=== PATIENT | male | born 1930 | race Caucasian/White ===

== ENCOUNTER 2016-06-01 13:14 | Inpatient (IN) | payer MEDICARE, BC ==
[2016-06-11] MEDS ORDERED: Lactulose Soln 10 GM/15 ML 15 ML UD Cup PO PRN (14:56)
[2016-06-11] MEDS ORDERED: Polyethylene Glycol 3350 Powder 17 GM Packet PO PRN (14:59)
[2016-06-11] MEDS ORDERED: Sodium Chloride 0.65% Nasal Spray 45 ML Bottle NASBOTH PRN (15:01)
[2016-06-11] MEDS ORDERED: Tuberculin, PPD 5 Units/0.1 ML 1 ML MDV IDERM ONE (16:05)
--- NOTE | 2016-06-11 16:16 | PCM.HP ---
H&P History of Present Illness - General Date of Service: 06/11/16 Admit Problem/Dx: Admission Diagnosis/Problem Admission Diagnosis/Problem Pain management Source of Information: Patient History Limitations: Reports: No limitations - History of Present Illness Initial Comments - Free Text/Narative: Pt is a 86 year old male who has yash diagnosed with intracranial meningioma with left sided hemiparesis. He was [facility] in [place] and later transferred to Stroke rehab unit at [facility] on 06/01/16. Pt does have residual left sided Hemiparesis and he has been moved back to [place], [place] for rehab. Pt has declined neurosurgery or oncology consultation. He has cancelled all appointment. Pt just wants to gets physiotherapy and stay on the present medication regime. No fever or chills. No nausea or vomiting. no headache. no sensory paresthesia. - Related Data Allergies/Adverse Reactions: Allergies Allergy/AdvReac Type Severity Reaction Status Date / Time No Known Allergies Allergy Verified 06/11/16 15:47 Home Medications: Home Meds Cetirizine HCl 10 mg PO BEDTIME 03/30/16 [History] Cholecalciferol (Vitamin D3) [Vitamin D3] 2,000 unit PO DAILY 03/30/16 [History] Hydrochlorothiazide [Hydrochlorothiazide] 12.5 mg PO DAILY 03/30/16 [History] Metoprolol Tartrate [Metoprolol Tartrate] 25 mg PO DAILY 03/30/16 [History] Simvastatin [Simvastatin] 20 mg PO DAILY 03/30/16 [History] Aspirin [Ecotrin] 165 mg PO DAILY 05/01/16 [History] Fluticasone Propionate 2 sprays RICKY BEDTIME 05/01/16 [History] Past Medical History HEENT History: Reports: Cataract, Hard of hearing, Other (see below) Other HEENT History: States nose plugs up at night a lot Cardiovascular History: Reports: Heart valve replacement, Pacemaker Other Cardiovascular History: new pacemaker in 2015, Heart valve in 2005 Respiratory History: Reports: Other (see below) Other Respiratory History: States susceptible to pneumonia and has a weakened immunity Genitourinary History: Reports: Other (see below) Other Genitourinary History: urgency Oncologic (Cancer) History: Reports: Prostate Other Oncologic History: Prostate CA with radiation - Infectious Disease History Infectious Disease History: Reports: Chicken pox, Measles, Mumps - Past Surgical History HEENT Surgical History: Reports: Cataract surgery Cardiovascular Surgical History: Reports: Pacer, Valve replacement Dermatological Surgical History: Reports: Other (see below) Social & Family History - Family History Family Medical History: Noncontributory - Tobacco Use Smoking Status *Q: Never Smoker Second Hand Smoke Exposure: No - Caffeine Use Caffeine Use: Reports: Coffee Other Caffeine Use: chocolate - Recreational Drug Use Recreational Drug Use: No H&P Review of Systems - Review of Systems: Review Of Systems: See Below General: Denies: fever, chills HEENT: Denies: rhinitis, post nasal drip, sinus congestion, sore throat Pulmonary: Denies: Shortness of Breath, Wheezing, Cough, Sputum Cardiovascular: Denies: chest pain, lightheadedness Gastrointestinal: Denies: Abdominal pain, Nausea, Vomiting Genitourinary: Denies: dysuria, frequency Musculoskeletal: Denies: neck pain, shoulder pain, joint pain, joint swelling Skin: Denies: cyanosis, bruising, pruritis, rash Psychiatric: Denies: confusion, depression, agitation, cravings Neurological: Reports: Pre-Existing Deficit, Difficulty Walking, Weakness. Denies: Confusion, Dizziness, Headache, Numbness, Seizure, Syncope, Tingling, Tremors, Trouble Speaking, Change in Speech Exam - Exam Exam: See Below - Vital Signs Vital Signs: Last Vital Signs Temp 98.3 F 06/11/16 15:05 Pulse 94 06/11/16 15:05 Resp 16 06/11/16 15:05 BP 107/73 06/11/16 15:05 Pulse Ox 95 06/11/16 15:05 Weight: 79.549 kg - Exam General: alert, oriented, 4 HEENT: PERRLA, Hearing intact, Mucosa moist & pink, Nares patent, Normal nasal septum, Posterior pharynx clear, Conjunctiva clear, EOMI, EACs clear, TMs clear Neck: supple, trachea midline, 2 Lungs: Clear to auscultation, Normal respiratory effort Cardiovascular: regular rate, regular rhythm Abdomen: normal bowel sounds, soft Extremities: normal inspection Peripheral Pulses: 2+: carotid (L), carotid (R), radial (L), radial (R) Skin: warm, intact Neuro Extensive - Mental Status: alert, oriented x3, normal mood/affect, normal cognition, memory intact Neuro Extensive - Motor, Sensory, Reflexes: CN II-XII intact, other (patient has left sided hemiparesis , lower extremity worse than upper extremity) *Q Meaningful Use (ADM) - VTE *Q VTE Criteria *Q: - Stroke *Q Stroke Criteria *Q: - AMI *Q AMI Criteria *Q: - Problem List (1) Hemiparesis, right SNOMED Code(s): 010640445 ICD Code: G81.91 - HEMIPLEGIA, UNSPECIFIED AFFECTING RIGHT DOMINANT SIDE Status: Acute Current Visit: Yes Problem List Initiated/Reviewed/Updated: Yes Orders Last 24hrs: Active Orders 24 hr Category Date Time Status Patient Status [ADT] Routine ADT 06/11/16 16:05 Ordered Consult to Dietary [Consult to Financial Management Consultant] [CONS] Cons 06/11/16 16:05 Ordered Routine Consult to Infection Prevention [CONS] Routine Cons 06/11/16 16:05 Ordered OT Evaluation and Treatment [CONS] Routine Cons 06/11/16 16:05 Ordered PT Evaluation and Treatment [CONS] Routine Cons 06/11/16 16:05 Ordered CULTURE MRSA SURVEY [RM] Routine Lab 06/11/16 15:49 Ordered Aspirin [Ecotrin] Med 06/12/16 08:00 Ordered 165 mg PO DAILY Aspirin [Halfprin] Med 06/12/16 08:00 Active 162 mg PO DAILY Cetirizine [ZyrTEC] Med 06/11/16 20:00 Active 10 mg PO BEDTIME Cetirizine [ZyrTEC] Med 06/11/16 20:00 Ordered 10 mg PO BEDTIME Cholecalciferol (Vitamin D3) [Vitamin D3] Med 06/12/16 08:00 Active 2,000 unit PO DAILY Cholecalciferol (Vitamin D3) [Vitamin D3] Med 06/12/16 08:00 Ordered 2,000 unit PO DAILY Cyclobenzaprine [Flexeril] Med 06/11/16 14:54 Active 5 mg PO TID PRN Dexamethasone Med 06/11/16 20:00 Active 2 mg PO BID Docusate Sodium [Colace] Med 06/11/16 20:00 Active 100 mg PO BID Fluticasone Propionate [Flonase] Med 06/11/16 20:00 Active 0 - 2 gm NASBOTH BEDTIME Hydrochlorothiazide Med 06/12/16 08:00 Active 12.5 mg PO DAILY Hydrochlorothiazide [Hydrochlorothiazide] Med 06/12/16 08:00 Ordered 12.5 mg PO DAILY Lactulose [Chronulac] Med 06/11/16 14:56 Active 20 gm PO DAILY PRN Metoprolol Tartrate [Lopressor] Med 06/12/16 08:00 Ordered 25 mg PO DAILY Metoprolol Tartrate [Lopressor] Med 06/11/16 17:00 Active 25 mg PO DAILY@1700 Omeprazole Med 06/11/16 20:00 Active 20 mg PO BIDAC Polyethylene Glycol 3350 [MiraLAX] Med 06/11/16 14:59 Active 17 gm PO DAILY PRN QUEtiapine [SEROquel] Med 06/11/16 15:00 Active 75 mg PO BEDTIME PRN Simvastatin [Zocor] Med 06/11/16 20:00 Active 20 mg PO BEDTIME Simvastatin [Zocor] Med 06/12/16 08:00 Ordered 20 mg PO DAILY Sodium Chloride 0.65% [[place] Nasal [place]] Med 06/11/16 15:01 Active 0 - 2 ml NASBOTH Q2H PRN Tamsulosin [Flomax] Med 06/11/16 20:00 Active 0.4 mg PO BEDTIME Tuberculin, PPD [Aplisol] Med 06/11/16 16:05 Once 5 unit IDERM ONETIME ONE levETIRAcetam [Keppra] Med 06/11/16 20:00 Active 500 mg PO BID Resuscitation Status Routine Resus Stat 06/11/16 16:05 Ordered Medication Orders Aspirin (Halfprin) 162 mg PO DAILY MANJU Aspirin (Ecotrin) 165 mg PO DAILY [facility] Cetirizine HCl (Zyrtec) 10 mg PO BEDTIME MANJU Cetirizine HCl (Zyrtec) 10 mg PO BEDTIME MANJU Cholecalciferol (Vitamin D3) 2,000 unit PO DAILY MANJU Cholecalciferol (Vitamin D3) 2,000 unit PO DAILY MANJU Cyclobenzaprine HCl (Flexeril) 5 mg PO TID PRN PRN Reason: MUSCLE SPASM Dexamethasone (Dexamethasone) 2 mg PO BID MANJU Docusate Sodium (Colace) 100 mg PO BID MANJU Fluticasone Propionate (Flonase) 0 - 2 gm NASBOTH BEDTIME MANJU Hydrochlorothiazide (Hydrochlorothiazide) 12.5 mg PO DAILY MANJU Lactulose (Chronulac) 20 gm PO DAILY PRN PRN Reason: CONSTIPATION Levetiracetam (Keppra) 500 mg PO BID MANJU Metoprolol Tartrate (Lopressor) 25 mg PO DAILY@1700 MANJU Metoprolol Tartrate (Lopressor) 25 mg PO DAILY MANJU Non-Formulary Medication (Hydrochlorothiazide [Hydrochlorothiazide]) 12.5 mg PO DAILY MANJU Omeprazole (Omeprazole) 20 mg PO BIDAC MANJU Polyethylene Glycol (Miralax) 17 gm PO DAILY PRN PRN Reason: CONSTIPATION Quetiapine Fumarate (Seroquel) 75 mg PO BEDTIME PRN PRN Reason: INSOMNIA Simvastatin (Zocor) 20 mg PO BEDTIME MANJU Simvastatin (Zocor) 20 mg PO DAILY MANJU Sodium Chloride ([place] Nasal [place]) 0 - 2 ml NASBOTH Q2H PRN PRN Reason: DRY NOSE Tamsulosin HCl (Flomax) 0.4 mg PO BEDTIME MANJU Tuberculin PPD (Aplisol) 5 unit IDERM ONETIME ONE Stop: 06/11/16 16:06 Assessment/Plan Comment:: right sided hemipareiss with intracranial mass with midline shift. Plan: pt is presently on dexamethsone to control the cerebral edema and also on keppra for seizure precautions. Pt has been doing Rehab for past few weeks. Plan is to continue rehab with patient. he is presently not motivated with any further treatment of the brain tumor. Will respect his decision. Continue to closely monitor him.
[2016-06-11] MEDS: Metoprolol Tartrate 25 MG Tab PO SCH (18:12)
[2016-06-11] MEDS ORDERED: Cetirizine 10 MG Tab PO SCH (20:00)
[2016-06-11] MEDS ORDERED: Simvastatin 20 MG Tab PO SCH (20:00)
[2016-06-11] MEDS: levETIRAcetam 500 MG Tab PO SCH (20:21)
[2016-06-11] MEDS: Omeprazole 20 MG Cap.CR PO SCH (20:21)
[2016-06-11] MEDS: Tamsulosin 0.4 MG Cap.ER PO SCH (20:22)
[2016-06-11] MEDS: Docusate Sodium 100 MG Cap PO SCH (20:22)
[2016-06-11] MEDS: Dexamethasone 4 MG Tab PO SCH (20:22)
[2016-06-11] MEDS: Fluticasone Propionate Nasal Spray 16 GM Bottle NASBOTH SCH (20:23)
[2016-06-11] MEDS: Cetirizine 10 MG Tab PO SCH (20:23)
[2016-06-12] MEDS: Omeprazole 20 MG Cap.CR PO SCH ×2 (07:18→20:01)
[2016-06-12] MEDS ORDERED: Aspirin 81 MG Tab.EC PO SCH (08:00)
[2016-06-12] MEDS ORDERED: Hydrochlorothiazide 12.5 MG Cap PO SCH (08:00)
[2016-06-12] MEDS ORDERED: Metoprolol Tartrate 25 MG Tab PO SCH (08:00)
[2016-06-12] MEDS ORDERED: Cholecalciferol (Vitamin D3) 2,000 Unit Cap PO SCH (08:00)
[2016-06-12] MEDS: Docusate Sodium 100 MG Cap PO SCH ×2 (09:10→19:59)
[2016-06-12] MEDS: Cholecalciferol (Vitamin D3) 2,000 Unit Cap PO SCH (09:10)
[2016-06-12] MEDS: Simvastatin 20 MG Tab PO SCH (09:10)
[2016-06-12] MEDS: Aspirin 81 MG Tab.EC PO SCH (09:10)
[2016-06-12] MEDS: Dexamethasone 4 MG Tab PO SCH ×2 (09:11→19:59)
[2016-06-12] MEDS: levETIRAcetam 500 MG Tab PO SCH ×2 (09:11→20:01)
[2016-06-12] MEDS: Hydrochlorothiazide 12.5 MG Cap PO SCH (09:11)
[2016-06-12] MEDS: Metoprolol Tartrate 25 MG Tab PO SCH (17:04)
[2016-06-12] MEDS: Cetirizine 10 MG Tab PO SCH (20:01)
[2016-06-12] MEDS: Tamsulosin 0.4 MG Cap.ER PO SCH (20:01)
[2016-06-12] MEDS: Fluticasone Propionate Nasal Spray 16 GM Bottle NASBOTH SCH (20:05)
[2016-06-13] MEDS: Hydrochlorothiazide 12.5 MG Cap PO SCH (08:53)
[2016-06-13] MEDS: Simvastatin 20 MG Tab PO SCH (08:53)
[2016-06-13] MEDS: Dexamethasone 4 MG Tab PO SCH ×2 (08:54→21:33)
[2016-06-13] MEDS: levETIRAcetam 500 MG Tab PO SCH ×2 (08:54→21:33)
[2016-06-13] MEDS: Cholecalciferol (Vitamin D3) 2,000 Unit Cap PO SCH (08:54)
[2016-06-13] MEDS: Aspirin 81 MG Tab.EC PO SCH (08:55)
[2016-06-13] MEDS: Docusate Sodium 100 MG Cap PO SCH ×2 (08:55→21:33)
[2016-06-13] MEDS: Omeprazole 20 MG Cap.CR PO SCH ×2 (11:29→21:33)
[2016-06-13] MEDS: Tamsulosin 0.4 MG Cap.ER PO SCH (21:33)
[2016-06-13] MEDS: Cetirizine 10 MG Tab PO SCH (21:33)
[2016-06-13] MEDS: Fluticasone Propionate Nasal Spray 16 GM Bottle NASBOTH SCH (21:36)
[2016-06-14] MEDS: Cholecalciferol (Vitamin D3) 2,000 Unit Cap PO SCH (08:54)
[2016-06-14] MEDS: Aspirin 81 MG Tab.EC PO SCH (08:54)
[2016-06-14] MEDS: Docusate Sodium 100 MG Cap PO SCH ×3 (08:54→20:45)
[2016-06-14] MEDS: levETIRAcetam 500 MG Tab PO SCH ×2 (08:55→20:45)
[2016-06-14] MEDS: Dexamethasone 4 MG Tab PO SCH ×2 (08:55→20:45)
[2016-06-14] MEDS: Hydrochlorothiazide 12.5 MG Cap PO SCH (08:55)
[2016-06-14] MEDS: Simvastatin 20 MG Tab PO SCH ×2 (10:26→20:45)
[2016-06-14] MEDS: Omeprazole 20 MG Cap.CR PO SCH (16:52)
[2016-06-14] MEDS: Metoprolol Tartrate 25 MG Tab PO SCH (16:53)
[2016-06-14] MEDS: Cetirizine 10 MG Tab PO SCH (20:34)
[2016-06-14] MEDS: Tamsulosin 0.4 MG Cap.ER PO SCH (20:45)
[2016-06-14] MEDS: Fluticasone Propionate Nasal Spray 16 GM Bottle NASBOTH SCH (21:23)
[2016-06-15] MEDS: Omeprazole 20 MG Cap.CR PO SCH ×2 (06:14→17:26)
[2016-06-15] MEDS: levETIRAcetam 500 MG Tab PO SCH ×2 (08:19→20:02)
[2016-06-15] MEDS: Dexamethasone 4 MG Tab PO SCH ×2 (08:19→20:01)
[2016-06-15] MEDS: Aspirin 81 MG Tab.EC PO SCH (08:19)
[2016-06-15] MEDS: Docusate Sodium 100 MG Cap PO SCH (08:19)
[2016-06-15] MEDS: Hydrochlorothiazide 12.5 MG Cap PO SCH (08:19)
[2016-06-15] MEDS: Cholecalciferol (Vitamin D3) 2,000 Unit Cap PO SCH (08:20)
[2016-06-15] MEDS: Metoprolol Tartrate 25 MG Tab PO SCH ×2 (17:27→18:12)
[2016-06-15] MEDS: Simvastatin 20 MG Tab PO SCH (20:01)
[2016-06-15] MEDS: Tamsulosin 0.4 MG Cap.ER PO SCH (20:02)
[2016-06-15] MEDS: QUEtiapine 25 MG Tab PO PRN (20:02)
[2016-06-15] MEDS: Cetirizine 10 MG Tab PO SCH (20:02)
[2016-06-16] MEDS: Cyclobenzaprine 10 MG Tab PO PRN ×2 (00:40→22:31)
[2016-06-16] MEDS: Fluticasone Propionate Nasal Spray 16 GM Bottle NASBOTH SCH ×2 (01:35→19:59)
[2016-06-16] MEDS: Docusate Sodium 100 MG Cap PO SCH ×3 (01:35→19:59)
[2016-06-16] MEDS: Omeprazole 20 MG Cap.CR PO SCH ×2 (06:32→16:15)
[2016-06-16] MEDS: Dexamethasone 4 MG Tab PO SCH ×2 (07:53→19:57)
[2016-06-16] MEDS: Aspirin 81 MG Tab.EC PO SCH (07:53)
[2016-06-16] MEDS: Cholecalciferol (Vitamin D3) 2,000 Unit Cap PO SCH (07:53)
[2016-06-16] MEDS: levETIRAcetam 500 MG Tab PO SCH ×2 (07:53→19:57)
[2016-06-16] MEDS: Hydrochlorothiazide 12.5 MG Cap PO SCH (07:54)
[2016-06-16] MEDS: Metoprolol Tartrate 25 MG Tab PO SCH (17:11)
[2016-06-16] MEDS: Simvastatin 20 MG Tab PO SCH (19:57)
[2016-06-16] MEDS: Cetirizine 10 MG Tab PO SCH (19:57)
[2016-06-16] MEDS: Tamsulosin 0.4 MG Cap.ER PO SCH (19:58)
[2016-06-16] MEDS: QUEtiapine 25 MG Tab PO PRN (22:32)
[2016-06-17] MEDS: Omeprazole 20 MG Cap.CR PO SCH ×2 (06:54→17:20)
[2016-06-17] MEDS: Docusate Sodium 100 MG Cap PO SCH ×2 (08:29→19:59)
[2016-06-17] MEDS: Dexamethasone 4 MG Tab PO SCH ×2 (08:29→19:58)
[2016-06-17] MEDS: Aspirin 81 MG Tab.EC PO SCH (08:29)
[2016-06-17] MEDS: Hydrochlorothiazide 12.5 MG Cap PO SCH (08:30)
[2016-06-17] MEDS: Cholecalciferol (Vitamin D3) 2,000 Unit Cap PO SCH (08:31)
[2016-06-17] MEDS: levETIRAcetam 500 MG Tab PO SCH ×2 (08:31→19:57)
[2016-06-17] MEDS: Metoprolol Tartrate 25 MG Tab PO SCH (17:21)
[2016-06-17] MEDS: Cyclobenzaprine 10 MG Tab PO PRN (19:57)
[2016-06-17] MEDS: Simvastatin 20 MG Tab PO SCH (19:57)
[2016-06-17] MEDS: Cetirizine 10 MG Tab PO SCH (19:58)
[2016-06-17] MEDS: Fluticasone Propionate Nasal Spray 16 GM Bottle NASBOTH SCH (19:59)
[2016-06-17] MEDS: Tamsulosin 0.4 MG Cap.ER PO SCH (19:59)
[2016-06-17] MEDS: QUEtiapine 25 MG Tab PO PRN (23:20)
[2016-06-18] MEDS: Omeprazole 20 MG Cap.CR PO SCH ×2 (06:06→11:06)
[2016-06-18] MEDS: Aspirin 81 MG Tab.EC PO SCH (08:09)
[2016-06-18] MEDS: Dexamethasone 4 MG Tab PO SCH ×2 (08:10→20:29)
[2016-06-18] MEDS: levETIRAcetam 500 MG Tab PO SCH ×2 (08:10→20:30)
[2016-06-18] MEDS: Cholecalciferol (Vitamin D3) 2,000 Unit Cap PO SCH (08:10)
[2016-06-18] MEDS: Hydrochlorothiazide 12.5 MG Cap PO SCH (08:11)
[2016-06-18] MEDS ORDERED: Docusate Sodium 100 MG Cap PO PRN (10:48)
[2016-06-18] MEDS: Docusate Sodium 100 MG Cap PO SCH (11:04)
[2016-06-18] MEDS: Metoprolol Tartrate 25 MG Tab PO SCH (18:12)
[2016-06-18] MEDS: Simvastatin 20 MG Tab PO SCH (20:29)
[2016-06-18] MEDS: Cetirizine 10 MG Tab PO SCH (20:30)
[2016-06-18] MEDS: Tamsulosin 0.4 MG Cap.ER PO SCH (20:30)
--- NOTE | 2016-06-18 20:32 | PCM.PN ---
- General Info Date of Service: 06/18/16 Admission Dx/Problem (Free Text): Pt claims he has been doing well. He does not have any allergic symptoms and prefer to have his flonase stopped. also he wants his stool softener stooped. He is on omeprazole twice daily and wants to take once daily. No heart burn of abdominal discomfort. Has been working with OT and PT. Has better strength in his left upper extremity than the left lower extremity. No new symptoms Functional Status: Reports: pain controlled, tolerating diet, ambulating, urinating - Review of Systems General: Denies: Fever, Weakness HEENT: Denies: dysphasia, headaches, sinus congestion Pulmonary: Denies: shortness of breath, cough, sputum, hemoptysis, wheezing Cardiovascular: Denies: Chest Pain, Lightheadedness Gastrointestinal: Denies: Abdominal pain, Nausea, Vomiting Genitourinary: Denies: dysuria, frequency Musculoskeletal: Denies: neck pain, shoulder pain Skin: Denies: pruritis, rash Neurological: Reports: Pre-Existing Deficit. Denies: Confusion, Headache, Numbness Psychiatric: Denies: confusion, depression - Patient Data Vitals - most recent: Last Vital Signs Temp 97.6 F 06/18/16 08:00 Pulse 85 06/18/16 18:12 Resp 16 06/18/16 08:00 BP 107/68 06/18/16 18:12 Pulse Ox 95 06/18/16 08:00 Weight - most recent: 78.018 kg Med Orders - Current: Current Medications Aspirin (Halfprin) 162 mg PO DAILY [facility] Last Admin: 06/18/16 08:09 Dose: 162 mg Cetirizine HCl (Zyrtec) 10 mg PO BEDTIME [facility] Last Admin: 06/17/16 19:58 Dose: 10 mg Cholecalciferol (Vitamin D3) 2,000 unit PO DAILY [facility] Last Admin: 06/18/16 08:10 Dose: 2,000 unit Cyclobenzaprine HCl (Flexeril) 5 mg PO TID PRN PRN Reason: MUSCLE SPASM Last Admin: 06/17/16 19:57 Dose: 5 mg Dexamethasone (Dexamethasone) 2 mg PO BID [facility] Last Admin: 06/18/16 08:10 Dose: 2 mg Docusate Sodium (Colace) 100 mg PO DAILY PRN PRN Reason: Constipation Hydrochlorothiazide (Hydrochlorothiazide) 12.5 mg PO DAILY [facility] Last Admin: 06/18/16 08:11 Dose: 12.5 mg Lactulose (Chronulac) 20 gm PO DAILY PRN PRN Reason: CONSTIPATION Levetiracetam (Keppra) 500 mg PO BID [facility] Last Admin: 06/18/16 08:10 Dose: 500 mg Metoprolol Tartrate (Lopressor) 25 mg PO DAILY@1700 [facility] Last Admin: 06/18/16 18:12 Dose: 25 mg Omeprazole (Omeprazole) 20 mg PO ACBREAKFAST [facility] Last Admin: 06/18/16 11:06 Dose: Not Given Polyethylene Glycol (Miralax) 17 gm PO DAILY PRN PRN Reason: CONSTIPATION Quetiapine Fumarate (Seroquel) 75 mg PO BEDTIME PRN PRN Reason: INSOMNIA Last Admin: 06/17/16 23:20 Dose: 75 mg Simvastatin (Zocor) 20 mg PO BEDTIME [facility] Last Admin: 06/17/16 19:57 Dose: 20 mg Sodium Chloride ([place] Nasal [place]) 0 - 2 ml NASBOTH Q2H PRN PRN Reason: DRY NOSE Tamsulosin HCl (Flomax) 0.4 mg PO BEDTIME [facility] Last Admin: 06/17/16 19:59 Dose: 0.4 mg Discontinued Medications Aspirin (Halfprin) 162 mg PO DAILY [facility] Cetirizine HCl (Zyrtec) 10 mg PO BEDTIME [facility] Cholecalciferol (Vitamin D3) 2,000 unit PO DAILY [facility] Docusate Sodium (Colace) 100 mg PO BID [facility] Last Admin: 06/18/16 11:04 Dose: Not Given Fluticasone Propionate (Flonase) 0 - 2 gm NASBOTH BEDTIME [facility] Last Admin: 06/17/16 19:59 Dose: Not Given Hydrochlorothiazide (Hydrochlorothiazide) 12.5 mg PO DAILY [facility] Metoprolol Tartrate (Lopressor) 25 mg PO DAILY [facility] Omeprazole (Omeprazole) 20 mg PO BIDAC [facility] Last Admin: 06/13/16 21:33 Dose: 20 mg Omeprazole (Omeprazole) 20 mg PO BID@0700,1600 [facility] Last Admin: 06/18/16 06:06 Dose: 20 mg Simvastatin (Zocor) 20 mg PO BEDTIME [facility] Simvastatin (Zocor) 20 mg PO DAILY [facility] Last Admin: 06/14/16 10:26 Dose: Not Given Tuberculin PPD (Aplisol) 5 unit IDERM ONETIME ONE Stop: 06/11/16 16:06 Last Admin: 06/12/16 09:29 Dose: 5 unit - Exam General: alert, oriented HEENT: Pupils equal, Pupils reactive, EOMI, Mucous membr. moist/pink Neck: supple Lungs: Clear to auscultation, Normal respiratory effort Cardiovascular: Regular Rate, Regular Rhythm Abdomen: bowel sounds present, soft, no tenderness, no distension Extremities: no edema Skin: warm, intact Neurological: no new focal deficit - Problem List & Annotations (1) Hemiparesis, right SNOMED Code(s): 522911542 Code(s): G81.91 - HEMIPLEGIA, UNSPECIFIED AFFECTING RIGHT DOMINANT SIDE Status: Acute Current Visit: No - Problem List Review Problem List Initiated/Reviewed/Updated: Yes - My Orders Last 24 Hours: My Active Orders 06/18/16 07:00 Omeprazole 20 mg PO ACBREAKFAST 06/18/16 10:48 Docusate Sodium [Colace] 100 mg PO DAILY PRN - Assessment Assessment:: Left hemiplegia with intracranial tumor - Plan Plan:: I have discontinue his flonase. and his stool softner is prn and decreased his omeprazole to once daily. Will continue with OT and PT. And follow their recommendation.
[2016-06-19] MEDS: Omeprazole 20 MG Cap.CR PO SCH (06:47)
[2016-06-19] MEDS: levETIRAcetam 500 MG Tab PO SCH ×2 (07:33→20:25)
[2016-06-19] MEDS: Aspirin 81 MG Tab.EC PO SCH (07:33)
[2016-06-19] MEDS: Hydrochlorothiazide 12.5 MG Cap PO SCH (07:33)
[2016-06-19] MEDS: Cholecalciferol (Vitamin D3) 2,000 Unit Cap PO SCH (07:33)
[2016-06-19] MEDS: Dexamethasone 4 MG Tab PO SCH ×3 (07:33→20:24)
[2016-06-19] MEDS: Metoprolol Tartrate 25 MG Tab PO SCH (18:23)
[2016-06-19] MEDS: Cetirizine 10 MG Tab PO SCH (20:24)
[2016-06-19] MEDS: Simvastatin 20 MG Tab PO SCH (20:25)
[2016-06-19] MEDS: Tamsulosin 0.4 MG Cap.ER PO SCH (20:25)
[2016-06-19] MEDS: QUEtiapine 25 MG Tab PO PRN (21:45)
[2016-06-19] MEDS: Cyclobenzaprine 10 MG Tab PO PRN (22:45)
[2016-06-20] MEDS: Omeprazole 20 MG Cap.CR PO SCH (06:42)
[2016-06-20] MEDS: Dexamethasone 4 MG Tab PO SCH ×2 (07:36→19:40)
[2016-06-20] MEDS: Hydrochlorothiazide 12.5 MG Cap PO SCH (07:36)
[2016-06-20] MEDS: Cholecalciferol (Vitamin D3) 2,000 Unit Cap PO SCH (07:36)
[2016-06-20] MEDS: levETIRAcetam 500 MG Tab PO SCH ×2 (07:36→19:39)
[2016-06-20] MEDS: Aspirin 81 MG Tab.EC PO SCH (07:36)
[2016-06-20] MEDS: Metoprolol Tartrate 25 MG Tab PO SCH (18:06)
[2016-06-20] MEDS: Cyclobenzaprine 10 MG Tab PO PRN (19:27)
[2016-06-20] MEDS: Tamsulosin 0.4 MG Cap.ER PO SCH (19:27)
[2016-06-20] MEDS: Simvastatin 20 MG Tab PO SCH (19:27)
[2016-06-20] MEDS: Cetirizine 10 MG Tab PO SCH (19:39)
[2016-06-20] MEDS: QUEtiapine 25 MG Tab PO PRN (19:40)
[2016-06-20] MEDS ORDERED: diphenhydrAMINE 50 MG Cap PO ONE (23:30)
[2016-06-20] MEDS ORDERED: diphenhydrAMINE 50 MG Cap ONE (23:36)
[2016-06-21] MEDS: Aspirin 81 MG Tab.EC PO SCH (08:13)
[2016-06-21] MEDS: Omeprazole 20 MG Cap.CR PO SCH (08:14)
[2016-06-21] MEDS: Dexamethasone 4 MG Tab PO SCH ×2 (08:14→20:30)
[2016-06-21] MEDS: Cholecalciferol (Vitamin D3) 2,000 Unit Cap PO SCH (08:14)
[2016-06-21] MEDS: Hydrochlorothiazide 12.5 MG Cap PO SCH (08:15)
[2016-06-21] MEDS: levETIRAcetam 500 MG Tab PO SCH ×2 (08:15→20:31)
[2016-06-21] MEDS: Metoprolol Tartrate 25 MG Tab PO SCH ×2 (16:51→19:26)
[2016-06-21] MEDS: Simvastatin 20 MG Tab PO SCH (20:31)
[2016-06-21] MEDS: Tamsulosin 0.4 MG Cap.ER PO SCH (20:31)
[2016-06-21] MEDS: Cetirizine 10 MG Tab PO SCH (20:32)
[2016-06-21] MEDS: diphenhydrAMINE 25 MG Cap PO PRN (21:49)
[2016-06-22] MEDS: Omeprazole 20 MG Cap.CR PO SCH (06:47)
[2016-06-22] MEDS: levETIRAcetam 500 MG Tab PO SCH ×2 (07:51→19:48)
[2016-06-22] MEDS: Cholecalciferol (Vitamin D3) 2,000 Unit Cap PO SCH (07:51)
[2016-06-22] MEDS: Dexamethasone 4 MG Tab PO SCH ×2 (07:51→19:47)
[2016-06-22] MEDS: Aspirin 81 MG Tab.EC PO SCH (07:51)
[2016-06-22] MEDS: Hydrochlorothiazide 12.5 MG Cap PO SCH (07:52)
[2016-06-22] MEDS: Tamsulosin 0.4 MG Cap.ER PO SCH (19:47)
[2016-06-22] MEDS: Metoprolol Tartrate 25 MG Tab PO SCH (19:48)
[2016-06-22] MEDS: Cetirizine 10 MG Tab PO SCH (19:52)
[2016-06-22] MEDS: Simvastatin 20 MG Tab PO SCH (19:52)
[2016-06-22] MEDS: diphenhydrAMINE 25 MG Cap PO PRN (19:53)
[2016-06-22] MEDS: QUEtiapine 25 MG Tab PO PRN (23:01)
[2016-06-23] MEDS: Dexamethasone 4 MG Tab PO SCH ×2 (08:30→20:51)
[2016-06-23] MEDS: Omeprazole 20 MG Cap.CR PO SCH (08:31)
[2016-06-23] MEDS: levETIRAcetam 500 MG Tab PO SCH ×2 (08:31→20:52)
[2016-06-23] MEDS: Aspirin 81 MG Tab.EC PO SCH (08:31)
[2016-06-23] MEDS: Cholecalciferol (Vitamin D3) 2,000 Unit Cap PO SCH (08:31)
[2016-06-23] MEDS: Hydrochlorothiazide 12.5 MG Cap PO SCH (14:30)
[2016-06-23] MEDS ORDERED: QUEtiapine 25 MG Tab PO PRN (16:25)
[2016-06-23] MEDS: Tamsulosin 0.4 MG Cap.ER PO SCH (20:52)
[2016-06-23] MEDS: Cetirizine 10 MG Tab PO SCH (20:53)
[2016-06-23] MEDS: Simvastatin 20 MG Tab PO SCH (20:53)
[2016-06-23] MEDS: Metoprolol Tartrate 25 MG Tab PO SCH (20:54)
[2016-06-24] MEDS: Omeprazole 20 MG Cap.CR PO SCH (07:10)
[2016-06-24] MEDS: Hydrochlorothiazide 12.5 MG Cap PO SCH (07:57)
[2016-06-24] MEDS: levETIRAcetam 500 MG Tab PO SCH (07:57)
[2016-06-24] MEDS: Cholecalciferol (Vitamin D3) 2,000 Unit Cap PO SCH (07:57)
[2016-06-24] MEDS: Aspirin 81 MG Tab.EC PO SCH (07:57)
[2016-06-24] MEDS: Dexamethasone 4 MG Tab PO SCH (07:57)
[2016-06-24 08:36] VITALS: BP 126/67
--- NOTE | 2016-06-24 08:38 | PCM.DCSUM1 ---
Discharge Summary - Hospital Course Free Text/Narrative:: Pt was admitted for rehab post left sided hemiparesis. Pt has intracranial meningioma. He has not does well with rehab. He does get delusional and confused at time and some time he is very coherent with his surroundings.Does get hallucinations and acute psychotic episodes at times, especially at night. He does have a progressive growth in the tumor and declined any further oncology or neurology evaluation. Pt prefers to just let the nature takes its natural course at this point. Hence as there is no acute rehabilitation that has been done for him at this point and per patient preference he has been transfer to [facility]. He has been DNR and DNI status all through his hospital stay and prefers to remain the same. Pt's life expectancy appears to be less than 6 months at this point, considering his deteriorating health condition. Will continue OT and PT evaluation at the [facility]. Brief History: Pt is a 86 year old male who was diagnosed with intracranial tumor with left sided hemiparesis, he was transferred from [facility] to [facility] for post stroke rehab after stabelising him at [facility]. - Discharge Data Discharge Date: 06/24/16 Discharge Disposition: DC/Tfer to Rehabilitation Services Coordinator [facility] 61 Condition: Fair - Discharge Diagnosis/Problem(s) (1) Hemiparesis, right SNOMED Code(s): 140643654 ICD Code: G81.91 - HEMIPLEGIA, UNSPECIFIED AFFECTING RIGHT DOMINANT SIDE Status: Acute Current Visit: No - Patient Summary/Data Consults: Consultations 06/11/16 16:05 Consult to Dietary [Consult to Network Security Engineer] [CONS] Routine Comment: Physician Instructions: Quantity: Consult to Infection Prevention [CONS] Routine Comment: Physician Instructions: OT Evaluation and Treatment [CONS] Routine Please Evaluate and Treat. OT Reason for Consult: ADL's This query below is only for informational purposes and is not editable. Admission Diagnosis/Problem: Pain management PT Evaluation and Treatment [CONS] Routine Please Evaluate and Treat. PT Reason for Consult: Strengthening This query below is only for informational purposes and is not editable. Admission Diagnosis/Problem: Pain management - Patient Instructions Diet: Usual Diet as Tolerated Activity: As Tolerated (with assitance) - Discharge Plan Home Medications: Home Meds Cholecalciferol (Vitamin D3) [Vitamin D3] 2,000 unit PO DAILY 03/30/16 [History] Hydrochlorothiazide [Hydrochlorothiazide] 12.5 mg PO DAILY 03/30/16 [History] Metoprolol Tartrate 25 mg PO DAILY 03/30/16 [History] Simvastatin [Simvastatin] 20 mg PO DAILY 03/30/16 [History] Aspirin [Ecotrin] 162 mg PO DAILY 05/01/16 [History] Cyclobenzaprine [Flexeril] 5 mg PO TID PRN 06/11/16 [History] Dexamethasone 2 mg PO Q12H 06/11/16 [History] Docusate Sodium [Colace] 100 mg PO BID 06/11/16 [History] Polyethylene Glycol 3350 [MiraLAX] 17 gm PO DAILY 06/11/16 [History] Sodium Chloride [[place] Nasal [place]] 2 sprays NASBOTH Q2H PRN 06/11/16 [History] Tamsulosin [Flomax] 0.4 mg PO BEDTIME 06/11/16 [History] levETIRAcetam [Keppra] 500 mg PO BID 06/11/16 [History] Omeprazole 20 mg PO DAILY #30 06/24/16 [Rx] QUEtiapine [SEROquel] 100 mg PO BEDTIME PRN #0 06/24/16 [Rx] - Discharge Summary/Plan Comment DC Time >30 min.: Yes Discharge Summary/Plan Comment: Discharge to care center OT and PT to continue therapy. Will continue present medications. Kindly consider this summary as the Care center H&P. - General Info Functional Status: Reports: tolerating diet, urinating - Review of Systems General: Reports: Weakness. Denies: Fever HEENT: Denies: post nasal drip, sinus congestion, sore throat Pulmonary: Denies: shortness of breath, pleuritic chest pain, cough, hemoptysis Cardiovascular: Denies: Chest Pain, Lightheadedness Gastrointestinal: Denies: Abdominal pain, Nausea, Vomiting Genitourinary: Denies: dysuria, retention, flank pain Musculoskeletal: Denies: neck pain, shoulder pain, joint pain, joint swelling Skin: Denies: pruritis, rash Neurological: Reports: Confusion, Pre-Existing Deficit (left sdied hemiparesis) , Gait Disturbance, Other (diplopia- uses corective eye glasses). Denies: Dizziness, Headache, Syncope Psychiatric: Reports: hallucinations. Denies: agitation, suicidal ideation - Patient Data Vitals - Most Recent: Last Vital Signs Temp 97.8 F 06/23/16 20:00 Pulse 71 06/23/16 20:54 Resp 14 06/23/16 20:00 BP 121/75 06/23/16 20:54 Pulse Ox 97 06/23/16 20:00 Weight - Most Recent: 79.197 kg Med Orders - Current: Current Medications Aspirin (Halfprin) 162 mg PO DAILY [facility] Last Admin: 06/24/16 07:57 Dose: 162 mg Cetirizine HCl (Zyrtec) 10 mg PO BEDTIME [facility] Last Admin: 06/23/16 20:53 Dose: 10 mg Cholecalciferol (Vitamin D3) 2,000 unit PO DAILY [facility] Last Admin: 06/24/16 07:57 Dose: 2,000 unit Cyclobenzaprine HCl (Flexeril) 5 mg PO TID PRN PRN Reason: MUSCLE SPASM Last Admin: 06/20/16 19:27 Dose: 5 mg Dexamethasone (Dexamethasone) 2 mg PO BID [facility] Last Admin: 06/24/16 07:57 Dose: 2 mg Docusate Sodium (Colace) 100 mg PO DAILY PRN PRN Reason: Constipation Hydrochlorothiazide (Hydrochlorothiazide) 12.5 mg PO DAILY [facility] Last Admin: 06/24/16 07:57 Dose: 12.5 mg Lactulose (Chronulac) 20 gm PO DAILY PRN PRN Reason: CONSTIPATION Levetiracetam (Keppra) 500 mg PO BID [facility] Last Admin: 06/24/16 07:57 Dose: 500 mg Metoprolol Tartrate (Lopressor) 25 mg PO DAILY@1999 [facility] Last Admin: 06/23/16 20:54 Dose: 25 mg Omeprazole (Omeprazole) 20 mg PO ACBREAKFAST [facility] Last Admin: 06/24/16 07:10 Dose: 20 mg Polyethylene Glycol (Miralax) 17 gm PO DAILY PRN PRN Reason: CONSTIPATION Last Admin: 06/22/16 19:55 Dose: 17 gm Quetiapine Fumarate (Seroquel) 100 mg PO BEDTIME [facility] Simvastatin (Zocor) 20 mg PO BEDTIME [facility] Last Admin: 06/23/16 20:53 Dose: 20 mg Sodium Chloride ([place] Nasal [place]) 0 - 2 ml NASBOTH Q2H PRN PRN Reason: DRY NOSE Tamsulosin HCl (Flomax) 0.4 mg PO BEDTIME [facility] Last Admin: 06/23/16 20:52 Dose: 0.4 mg Discontinued Medications Aspirin (Halfprin) 162 mg PO DAILY [facility] Cetirizine HCl (Zyrtec) 10 mg PO BEDTIME [facility] Cholecalciferol (Vitamin D3) 2,000 unit PO DAILY [facility] Diphenhydramine HCl (Benadryl) 50 mg PO ONETIME ONE Stop: 06/20/16 23:31 Last Admin: 06/20/16 23:30 Dose: 50 mg Diphenhydramine HCl (Benadryl) Confirm Administered Dose 50 mg .ROUTE .STK-MED ONE Stop: 06/20/16 23:37 Last Admin: 06/21/16 07:11 Dose: Not Given Diphenhydramine HCl (Benadryl) 50 mg PO BEDTIME PRN PRN Reason: Anxiety Last Admin: 06/22/16 19:53 Dose: 50 mg Docusate Sodium (Colace) 100 mg PO BID [facility] Last Admin: 06/18/16 11:04 Dose: Not Given Fluticasone Propionate (Flonase) 0 - 2 gm NASBOTH BEDTIME [facility] Last Admin: 06/17/16 19:59 Dose: Not Given Hydrochlorothiazide (Hydrochlorothiazide) 12.5 mg PO DAILY [facility] Metoprolol Tartrate (Lopressor) 25 mg PO DAILY@1700 [facility] Last Admin: 06/21/16 16:51 Dose: 25 mg Metoprolol Tartrate (Lopressor) 25 mg PO DAILY [facility] Omeprazole (Omeprazole) 20 mg PO BIDAC [facility] Last Admin: 06/13/16 21:33 Dose: 20 mg Omeprazole (Omeprazole) 20 mg PO BID@0700,1600 [facility] Last Admin: 06/18/16 06:06 Dose: 20 mg Quetiapine Fumarate (Seroquel) 75 mg PO BEDTIME PRN PRN Reason: INSOMNIA Last Admin: 06/22/16 23:01 Dose: 75 mg Quetiapine Fumarate (Seroquel) 100 mg PO BEDTIME PRN PRN Reason: INSOMNIA Quetiapine Fumarate (Seroquel) 100 mg PO ONETIME ONE Stop: 06/23/16 21:01 Last Admin: 06/23/16 20:54 Dose: 100 mg Simvastatin (Zocor) 20 mg PO BEDTIME [facility] Simvastatin (Zocor) 20 mg PO DAILY [facility] Last Admin: 06/14/16 10:26 Dose: Not Given Tuberculin PPD (Aplisol) 5 unit IDERM ONETIME ONE Stop: 06/11/16 16:06 Last Admin: 06/12/16 09:29 Dose: 5 unit - Exam General: Reports: alert, cooperative, no acute distress HEENT: Reports: Pupils equal, Pupils reactive, EOMI, Mucous membr. moist/pink Neck: Reports: supple Lungs: Reports: Clear to auscultation, Normal respiratory effort Cardiovascular: Reports: Regular Rate Abdomen: Reports: bowel sounds present, soft, no tenderness, no distension Back Exam: Reports: normal inspection, full range of motion Extremities: Reports: no edema, normal pulses Skin: Reports: warm, dry, intact Neurological: Reports: normal speech, normal tone, other (Does have left hemiparesis) Psy/Mental Status: Reports: alert, normal mood *Q Meaningful Use (DIS) - VTE *Q VTE Criteria *Q: - Stroke *Q Stroke Criteria *Q: - AMI *Q AMI Criteria *Q:
[2016-06-24] MEDS ORDERED: QUEtiapine 25 MG Tab PO SCH (20:00)
== END 2016-06-24 10:15 | DRG 57 ==
LOC: LB.MS 06-11 12:59 → UNDOADMIN 06-11 12:59 → LB.MS 06-11 15:00
PROVIDERS: ADMIT Family Medicine; ATTEND Family Medicine
DX: G81.94 Hemiplegia, unspecified affecting left nondominant side (principal); R44.3 Hallucinations, unspecified; D43.2 Neoplasm of uncertain behavior of brain, unspecified; F06.8 Other specified mental disorders due to known physiological condition; Z66 Do not resuscitate; Z85.46 Personal history of malignant neoplasm of prostate; Z92.3 Personal history of irradiation; Z95.0 Presence of cardiac pacemaker; Z95.2 Presence of prosthetic heart valve; H91.90 Unspecified hearing loss, unspecified ear; Z79.82 Long term (current) use of aspirin
CPT/HCPCS: 86580; 97110-GO; 97110-GP; 97116-GP; 97161-GP; 97165-GO; 97530-GO; A9270-GY; J8540